=== PATIENT | male | born 1950 | race Asian ===

== ENCOUNTER 2017-01-06 19:29 | Emergency (ER) | payer MEDICARE, OTHER ==
[~2017-01-06] VITALS: Ht 167.6 cm; Wt 84.5 kg
[2017-01-06] MEDS ORDERED: ATOR20TA86 PO (19:34)
[2017-01-06] MEDS ORDERED: CHOL50004 PO (19:34)
[2017-01-06] MEDS ORDERED: VITAD1000 PO (19:37)
[2017-01-06 20:33] VITALS: BP 129/88
[2017-01-06] MEDS ORDERED: ACETAMINOPHEN 325 MG TABLET PO ONE (21:00)
[2017-01-06] MEDS ORDERED: CIPROFLOXACIN HCL 250 MG TABLET PO ONE (21:00)
== END 2017-01-06 21:13 | disposition home or self-care (01) ==
LOC: EMS 19:31
DX: S91.332A Puncture wound without foreign body, left foot, initial encounter (principal); E78.00 Pure hypercholesterolemia, unspecified; Z91.013 Allergy to seafood; W21.31XA Struck by shoe cleats, initial encounter; Y93.89 Activity, other specified; Y92.89 Other specified places as the place of occurrence of the external cause; Y99.8 Other external cause status
CPT/HCPCS: 99283